=== PATIENT | male | born 1970 | race Caucasian/White ===

== ENCOUNTER → 2016-11-08 | Outpatient (CLI) | payer OTHER | END | disposition home or self-care (01) | LOC: CFH 15:10 | PROVIDERS: ATTEND Family Medicine | DX: M79.604 Pain in right leg (principal); M79.89 Other specified soft tissue disorders ==

== ENCOUNTER 2020-08-17 12:32 | Observation (INO) | payer OTHER ==
[~2020-08-17] VITALS: Ht 177.8 cm; Wt 124.4 kg
[~2020-08-17 12:32] MED LIST: [UNRECOGNIZED DRUG - REMARK]; allopurinol
[2020-08-17] MEDS ORDERED: OXYcodone/APAP 10/325MG TABLET PO ONE (13:00)
[2020-08-17] MEDS ORDERED: KETOROLAC 30 MG/1 ML IM ONE (13:00)
[2020-08-17] MEDS ORDERED: OXYcodone/APAP 10/325MG TABLET ONE (13:05)
[2020-08-17] MEDS ORDERED: KETOROLAC 60 MG/2 ML ONE (13:05)
--- NOTE | 2020-08-17 13:08 | NUR ---
PT IN RAD AT THIS TIME
[2020-08-17 14:26] LABS: BASOPHILS % (AUTO) 1 % (0-1); EOSINOPHILS % (AUTO) 0 % (1-7); LYMPHOCYTES % (AUTO) 12 % (22-44); MEAN CORPUSCULAR HEMOGLOBIN 29.2 pg (27.5-34.5); MEAN CORPUSCULAR HGB CONC 33.8 g/dL (33.2-36.2); MEAN PLATELET VOLUME 7.8 fL (7.4-10.4); MONOCYTES % (AUTO) 7 % (2-9); NEUTROPHILS % (AUTO) 80 % (42-75); PLATELET COUNT 301 x10^3/uL (130-400); RED BLOOD COUNT 5.73 x10^6/uL (4.38-5.82); RED CELL DISTRIBUTION WIDTH 15.2 % (9.4-14.8)
[2020-08-17 14:35] LABS: ANION GAP 5 mmol/L (5-15); CALCIUM 9.4 mg/dL (8.5-10.1); CHLORIDE 105 mmol/L (98-107); CREATININE 1.31 mg/dL (0.7-1.3)
[2020-08-17 14:45] LABS: MD NO
[2020-08-17] MEDS ORDERED: LEVO88TA4 PO (14:59)
[2020-08-17] MEDS ORDERED: INDO50CA15 PO (14:59)
[2020-08-17] MEDS ORDERED: COLCHICINE PO (14:59)
--- NOTE | 2020-08-17 15:13 | NUR ---
REPORT TO HOLLY DOMINGUEZ.
[2020-08-17] MEDS ORDERED: morphine SULFATE 10 MG/ML, 1ML IVPush PRN (15:30)
[2020-08-17] MEDS ORDERED: KETOROLAC 30 MG/1 ML IV PRN (15:30)
[2020-08-17] MEDS ORDERED: ACETAMINOPHEN 325 MG TABLET PO PRN (15:30)
[2020-08-17] MEDS ORDERED: prednisOLONE 15 MG/5 ML ORAL SOLN PO SCH (16:00)
[2020-08-17] MEDS ORDERED: COLCHICINE 0.6 MG CAPSULE PO ONE (16:00)
[2020-08-17 16:16] VITALS: BP 108/72
[2020-08-17 16:33] LABS: HCT (SEDRATE) 49.6 % (39.2-51.8)
[2020-08-17] MEDS: SODIUM CHLORIDE 0.9% 1,000 ML IV SCH (16:56)
[2020-08-17] MEDS: HEPARIN 5,000 UNITS/ML, 1ML SQ SCH (16:56)
[2020-08-17] MEDS: OMEPRAZOLE 20 MG CAPSULE.DR PO SCH (16:57)
[2020-08-17] MEDS: HYDROcodone/APAP 5/325 TABLET PO PRN (18:10)
[2020-08-17] MEDS: prednisOLONE 15 MG/5 ML ORAL SOLN PO SCH (18:29)
[2020-08-17 19:19] VITALS: BP 92/56
[2020-08-18] MEDS: HEPARIN 5,000 UNITS/ML, 1ML SQ SCH ×3 (00:17→15:47)
[2020-08-18 01:02] VITALS: BP 102/66
[2020-08-18] MEDS: SODIUM CHLORIDE 0.9% 1,000 ML IV SCH (01:09)
[2020-08-18 05:41] LABS: BASOPHILS % (AUTO) 0 % (0-1); EOSINOPHILS % (AUTO) 0 % (1-7); LYMPHOCYTES % (AUTO) 8 % (22-44); MEAN CORPUSCULAR HGB CONC 33.5 g/dL (33.2-36.2); MEAN PLATELET VOLUME 7.7 fL (7.4-10.4); MONOCYTES % (AUTO) 2 % (2-9); NEUTROPHILS % (AUTO) 90 % (42-75); PLATELET COUNT 272 x10^3/uL (130-400); RED BLOOD COUNT 5.53 x10^6/uL (4.38-5.82); RED CELL DISTRIBUTION WIDTH 15.2 % (9.4-14.8)
[2020-08-18 05:51] LABS: ALANINE AMINOTRANSFERASE 32 U/L (12-78); ALBUMIN 2.7 g/dL (3.4-5.0); ANION GAP 3 mmol/L (5-15); CALCIUM 9.2 mg/dL (8.5-10.1); CHLORIDE 108 mmol/L (98-107); CREATININE 1.07 mg/dL (0.7-1.3)
[2020-08-18] MEDS: OMEPRAZOLE 20 MG CAPSULE.DR PO SCH ×2 (05:59→15:47)
[2020-08-18 06:02] LABS: ALKALINE PHOSPHATASE 102 U/L (45-117); BILIRUBIN,TOTAL 0.5 mg/dL (0.2-1.0); TOTAL PROTEIN 7.2 g/dL (6.4-8.2)
[2020-08-18 06:27] LABS: MD SCAN
[2020-08-18 06:50] VITALS: BP 101/66
[2020-08-18] MEDS: prednisOLONE 15 MG/5 ML ORAL SOLN PO SCH (08:11)
[2020-08-18] MEDS ORDERED: prednisOLONE 15 MG/5 ML ORAL SOLN PO SCH (09:00)
[2020-08-18] MEDS ORDERED: COLCHICINE 0.6 MG CAPSULE PO SCH (09:00)
[2020-08-18 12:31] VITALS: BP 125/75
[2020-08-18] MEDS ORDERED: PRED10TA14 PO (14:54)
[2020-08-18] MEDS ORDERED: ALLO300T PO (14:54)
[2020-08-18] MEDS ORDERED: COLC0.6T37 PO (14:54)
[2020-08-18] MEDS ORDERED: INDO50CA15 PO (14:54)
[2020-08-18] MEDS: HYDROcodone/APAP 5/325 TABLET PO PRN (17:17)
== END 2020-08-18 21:00 | disposition home or self-care (01) ==
LOC: ED 13:31 → EDIP 14:45 → INTOOBSV 14:45 → 3N 16:11
PROVIDERS: ADMIT Hospitalist; ATTEND Hospitalist
DX: M10.9 Gout, unspecified (principal); N17.0 Acute kidney failure with tubular necrosis; M19.90 Unspecified osteoarthritis, unspecified site; D72.829 Elevated white blood cell count, unspecified; E03.9 Hypothyroidism, unspecified; K21.9 Gastro-esophageal reflux disease without esophagitis; Z79.899 Other long term (current) drug therapy
CPT/HCPCS: 36415; 73564; 73630; 80048; 80053; 83735; 84100; 84443; 84550; 85025; 85651; 96360; 96361; 96372; 99284; G0378; J1644; J1885; J7030; J7510

== ENCOUNTER 2020-09-21 11:43 | Emergency (ER) | payer OTHER ==
[~2020-09-21] VITALS: Ht 177.8 cm; Wt 121.8 kg
[~2020-09-21 11:43] MED LIST changes: +ALLO300T PO; +COLC0.6T37 PO; +COLCHICINE PO; +INDO50CA15 PO; +LEVO88TA4 PO; +PRED10TA14 PO
[2020-09-21] MEDS ORDERED: KETOROLAC 30 MG/1 ML IM ONE (12:00)
[2020-09-21] MEDS ORDERED: KETOROLAC 30 MG/1 ML ONE (12:06)
[2020-09-21] MEDS ORDERED: OXYcodone/APAP 5/325MG TABLET ONE ×2 (12:24→13:19)
--- NOTE | 2020-09-21 12:37 | NUR ---
C/O INCREASED PAIN AFTER XRAYS. INFORMED ER PROVIDER FOR PAIN MED ORDER.
[2020-09-21] MEDS ORDERED: OXYcodone/APAP 5/325MG TABLET PO ONE ×2 (13:00→13:30)
[2020-09-21 13:22] VITALS: BP 135/85
== END 2020-09-21 13:42 | disposition home or self-care (01) ==
LOC: ED 12:27
DX: S93.491A Sprain of other ligament of right ankle, initial encounter (principal); X58.XXXA Exposure to other specified factors, initial encounter; Y93.89 Activity, other specified; Y92.89 Other specified places as the place of occurrence of the external cause; Y99.8 Other external cause status
CPT/HCPCS: 73610; 73630; 96372; 99284; J1885

== ENCOUNTER 2021-02-20 14:45 | Outpatient (CLI) | payer OTHER ==
[2021-02-20] MEDS ORDERED: FEBU40TA PO (15:47)
[2021-02-20 15:54] LABS: ALANINE AMINOTRANSFERASE 55 U/L (12-78); ALBUMIN 3.4 g/dL (3.4-5.0); ANION GAP 5 mmol/L (5-15); CALCIUM 9.5 mg/dL (8.5-10.1); CHLORIDE 111 mmol/L (98-107); CREATININE 0.95 mg/dL (0.7-1.3)
[2021-02-20 15:56] LABS: ALKALINE PHOSPHATASE 102 U/L (45-117); BILIRUBIN,TOTAL 0.6 mg/dL (0.2-1.0)
[2021-02-20 15:58] LABS: BASOPHILS % (AUTO) 1 % (0-1); EOSINOPHILS % (AUTO) 1 % (1-7); LYMPHOCYTES % (AUTO) 33 % (22-44); MEAN CORPUSCULAR HEMOGLOBIN 28.9 pg (27.5-34.5); MEAN CORPUSCULAR HGB CONC 33.2 g/dL (33.2-36.2); MEAN PLATELET VOLUME 8.4 fL (7.4-10.4); MONOCYTES % (AUTO) 9 % (2-9); NEUTROPHILS % (AUTO) 56 % (42-75); PLATELET COUNT 237 x10^3/uL (130-400); RED CELL DISTRIBUTION WIDTH 16.6 % (9.4-14.8)
[2021-02-20 16:05] LABS: INTERNATIONAL NORMALIZED RATIO 1.04 (0.93-1.1); PROTHROMBIN TIME 11.1 Seconds (9.6-11.5)
== END 2021-02-20 23:59 | disposition home or self-care (01) ==
LOC: STAR 14:45
PROVIDERS: ATTEND Surgery
DX: Z01.812 Encounter for preprocedural laboratory examination (principal); Z20.822 Contact with and (suspected) exposure to COVID-19; Z01.818 Encounter for other preprocedural examination
CPT/HCPCS: 36415; 80053; 85025; 85610; 93005; U0003; U0005

== ENCOUNTER 2021-02-26 06:04 | Day surgery (SDC) | payer OTHER ==
[~2021-02-26] VITALS: Ht 177.8 cm; Wt 98.7 kg
[~2021-02-26 06:04] MED LIST changes: +FEBU40TA PO
[2021-02-26 06:44] VITALS: BP 124/79
[2021-02-26] MEDS ORDERED: CHLORHEXIDINE 15 ML UDC PO ONE (07:00)
[2021-02-26] MEDS ORDERED: LACTATED RINGERS 1,000 ML IV SCH (07:00)
[2021-02-26] MEDS ORDERED: BUPIVACAINE/PF 0.5% ONE (07:55)
[2021-02-26] MEDS ORDERED: EPINEPHRINE 1 MG/ML, 1ML ONE (07:55)
[2021-02-26] MEDS ORDERED: EPHEDRINE 50 MG/ML, 1ML IM PRN (08:30)
[2021-02-26] MEDS ORDERED: HALOPERIDOL 5 MG/ML IV PRN (08:30)
[2021-02-26] MEDS ORDERED: OXYcodone 5 MG/5 ML ORAL.SOL UDC PO PRN (08:30)
[2021-02-26] MEDS ORDERED: hydrALAzine 20 MG/ML, 1ML IV PRN (08:30)
[2021-02-26] MEDS ORDERED: HYDROmorphone 1 MG/ML, 1ML INJ IVPush PRN (08:30)
[2021-02-26] MEDS ORDERED: METOCLOPRAMIDE 5 MG/ML, 2ML IVPush PRN (08:30)
[2021-02-26] MEDS ORDERED: LORazepam 2 MG/ML, 1ML IVPush PRN (08:30)
[2021-02-26] MEDS ORDERED: EPHEDRINE 50 MG/ML, 1ML IVPush PRN (08:30)
[2021-02-26] MEDS ORDERED: ONDANSETRON 2MG/ML, 2ML IVPush PRN (08:30)
[2021-02-26] MEDS ORDERED: MEPERIDINE/PF 25MG/0.5ML IVPush PRN (08:30)
[2021-02-26] MEDS ORDERED: MIDAZOLAM 1 MG/ML, 2ML IV PRN (08:30)
[2021-02-26] MEDS ORDERED: DIAZEPAM 5 MG/ML, 2ML IVPush PRN (08:30)
[2021-02-26] MEDS ORDERED: DIPHENHYDRAMINE 50 MG/ML, 1ML IVPush PRN (08:30)
[2021-02-26] MEDS ORDERED: HYDROcodone/APAP 7.5-325MG/15ML UDC PO PRN (08:30)
[2021-02-26] MEDS ORDERED: ALBUTEROL/IPRATROPIUM 2.5MG/0.5MG, 3 ML NPPB PRN (08:30)
[2021-02-26] MEDS ORDERED: METHOCARBAMOL 1,000 MG in DEXTROSE 5% 100 ML IV PRN (08:30)
[2021-02-26] MEDS ORDERED: FENTANYL PF 100 MCG/2ML IV PRN (08:30)
[2021-02-26] MEDS ORDERED: LABETALOL 5MG/ML, 20ML IV PRN (08:30)
[2021-02-26] MEDS ORDERED: MIDAZOLAM 1 MG/ML, 2ML ONE (08:47)
[2021-02-26] MEDS ORDERED: GLYCOPYRROLATE 0.2MG/1ML, 5ML ONE (08:47)
[2021-02-26] MEDS ORDERED: LIDOCAINE-MPF 2% ,5ML ONE (08:47)
[2021-02-26] MEDS ORDERED: PROPOFOL 10 MG/ML, 20ML ONE (08:47)
[2021-02-26] MEDS ORDERED: DEXAMETHASONE 4 MG/ML, 5ML ONE (08:47)
[2021-02-26] MEDS ORDERED: FENTANYL PF 250 MCG/5ML ONE (08:47)
[2021-02-26] MEDS ORDERED: ROCURONIUM 10MG/ML,5ML ONE (08:47)
[2021-02-26] MEDS ORDERED: CEFAZOLIN 1,000 MG ONE (10:17)
[2021-02-26] MEDS ORDERED: BUPIVACAINE/PF-EPI 0.5% 1:200K INFIL ONE (10:25)
[2021-02-26] MEDS ORDERED: HYDR-2214 PO (11:54)
== END 2021-02-26 14:42 | disposition home or self-care (01) ==
LOC: OUT 06:04 → EDSTATUS 10:00 → OUT 14:42
PROVIDERS: ATTEND Surgery
DX: C43.62 Malignant melanoma of left upper limb, including shoulder (principal); E03.9 Hypothyroidism, unspecified; M10.9 Gout, unspecified; G47.33 Obstructive sleep apnea (adult) (pediatric); E66.01 Morbid (severe) obesity due to excess calories; Z68.33 Body mass index [BMI] 33.0-33.9, adult; Z79.890 Hormone replacement therapy; Z79.899 Other long term (current) drug therapy; Z98.890 Other specified postprocedural states; Z82.61 Family history of arthritis; Z83.3 Family history of diabetes mellitus; Z80.8 Family history of malignant neoplasm of other organs or systems
CPT/HCPCS: 14000; 38525; 78195; 88307; A9541; J0171; J0690; J1100; J2250; J2405; J2704; J3010; J7120